=== PATIENT | female | born 1965 | race Caucasian/White ===

== ENCOUNTER 2017-03-26 02:16 | Emergency (ER) | payer OTHER ==
[~2017-03-26] VITALS: Ht 167.6 cm; Wt 57.3 kg
[~2017-03-26 02:16] MED LIST: CLIN-78 PO; PRE10 PO
[2017-03-26 02:20] VITALS: BP 125/84; RESP 16; O2SAT 97
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
[2017-03-26] MEDS ORDERED: Epinephrine Racemic 2.25% 0.5 mL Inhalation Solution NEB ONE (02:35)
[2017-03-26 02:45] VITALS: PULSE 63; RESP 18; O2SAT 98
[2017-03-26] MEDS ORDERED: LidocaineVisc 2%:Antacid 1:1 10 mL Syringe PO ONE (03:15)
[2017-03-26] MEDS ORDERED: Ondansetron 8 mg ODT Tablet PO ONE (03:40)
--- NOTE | 2017-03-26 08:47 | DRSVH ---
PROCEDURE: X-RAY CHEST, TWO VIEWS ([id number]) INDICATIONS: dyspnea TECHNIQUE: 2 views of the chest were acquired. COMPARISON: [facility], CR, XR CHEST 1VW (PORTABLE), 09/09/2016, 12:01. FINDINGS: Surgical changes and devices: Postsurgical changes are redemonstrated in the right axilla. Lungs and pleura: No pleural effusions or pneumothorax. Lungs are clear. Mediastinum: Mediastinal contours are normal. Heart size is normal. Bones and chest wall: No suspicious bony abnormalities. Soft tissues appear unremarkable. IMPRESSION: 1. No acute cardiopulmonary disease. Dictated by: Itz Boss M.D. on 03/26/2017 at 8:45 Approved by: Itz Boss M.D. on 03/26/2017 at 8:46
== END 2017-03-26 04:22 | disposition home or self-care (01) ==
LOC: SED 02:16
DX: J30.81 Allergic rhinitis due to animal (cat) (dog) hair and dander (principal); J45.909 Unspecified asthma, uncomplicated; F17.200 Nicotine dependence, unspecified, uncomplicated; Z88.0 Allergy status to penicillin; Z88.1 Allergy status to other antibiotic agents; Z88.5 Allergy status to narcotic agent; Z88.2 Allergy status to sulfonamides